=== PATIENT | female | born 1995 | race Two or more races ===

== ENCOUNTER 2017-07-12 18:38 | Emergency (ER) | payer OTHER ==
[2017-07-12 18:44] VITALS: RESP 16
[2017-07-12] MEDS ORDERED: CYCLOBENZAPRINE 10 MG TAB PO ONE (19:13)
[2017-07-12] MEDS ORDERED: IBUPROFEN 600 MG TAB PO ONE (19:13)
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
[2017-07-12 20:38] VITALS: BP 123/73; PULSE 98; TEMP 98.2; O2SAT 96
== END 2017-07-12 20:38 | disposition home or self-care (01) ==
DX: S29.9XXA Unspecified injury of thorax, initial encounter (principal); V49.49XA Driver injured in collision with other motor vehicles in traffic accident, initial encounter; Y92.410 Unspecified street and highway as the place of occurrence of the external cause; Y99.8 Other external cause status; Y93.89 Activity, other specified; J45.909 Unspecified asthma, uncomplicated